=== PATIENT | male | born 1980 | race Caucasian/White ===

== ENCOUNTER 2020-12-14 16:33 | Outpatient (CLI) | payer OTHER, SELFPAY ==
--- NOTE | ~2020-12-14 | XR_ITS ---
XR toe 4th RT min 2V DATE: 12/14/2020 17:12 INDICATION: Stubbed toe. Unable to bear weight. Fourth toe pain. TECHNIQUE: 4 views COMPARISON: None FINDINGS: There is a small curvilinear bony density at the dorsal aspect of the distal interphalangea l joint and base of the distal phalanx which may represent a small cortical avulsion fracture of unce rtain age. There is widening of the distal interphalangeal joint space. No other fracture or dislocation is detected. No periosteal reaction or bone destruction. No radiopaq ue soft tissue foreign body or subcutaneous emphysema. IMPRESSION: Small cortical avulsion fracture of the dorsal aspect of the base of the distal phalanx, of undetermined age Reviewed, dictated and finalized at location B. IMPRESSION: Small cortical avulsion fracture of the dorsal aspect of the base o f the distal phalanx, of undetermined age
== END 2020-12-14 16:34 | disposition home or self-care (01) ==
LOC: ANHIMG 16:37
PROVIDERS: PCP Family Medicine; Visit Provider Family Medicine
DX: S92.531A Displaced fracture of distal phalanx of right lesser toe(s), initial encounter for closed fracture (principal); M79.676 Pain in unspecified toe(s)
CPT/HCPCS: 73660

== ENCOUNTER 2023-08-16 06:21 | Emergency (ER) | payer OTHER, SELFPAY ==
--- NOTE | ~2023-08-16 | US_ITS ---
EXAMINATION: US right upper quadrant DATE: 08/16/2023 08:30 INDICATION: Right upper quadrant abdominal pain TECHNIQUE: Multiple grayscale and Doppler ultrasound images of the abdomen were obtained. COMPARISON: None FINDINGS: The pancreatic head and body are normal in appearance. The pancreatic tail is not visualized. Liver has normal echogenicity and contour, with a smooth surface. No liver lesion identified. No intrahepat ic biliary duct dilation suspected. Portal venous flow was seen in the hepatopetal, normal direction and has normal Doppler waveform. The proximal inferior vena cava is normal. Visualized portion of the right kidney demonstrates normal echogenicity and contour with no hydronephrosis. There is diffuse w all thickening of the gallbladder. 2 mm hypoechoic likely polyp which appears adherent to the nondepe ndent wall of the gallbladder fundus. No evident shadowing cholelithiasis. Common bile duct measures 2-3 mm in diameter which is normal. Sonographic Alvarado sign was reported as positive by the sonograph er. IMPRESSION: 1. Gallbladder wall thickening with positive sonographic Alvarado's on the but without evident cholelit hiasis which is equivocal for acute cholecystitis. The gallbladder wall thickening could also be rela truman to liver disease, heart or renal failure, sepsis or other generalized edema forming states. Corre late clinically and could consider HIDA scan for further evaluation. Reviewed, dictated and finalized at location L. IMPRESSION: 1. Gallbladder wall thickening with positive sonographic Alvarado's on the but wi thout evident cholelithiasis which is equivocal for acute cholecystitis. The ga llbladder wall thickening could also be related to liver disease, heart or andrew l failure, sepsis or other generalized edema forming states. Correlate clinical ly and could consider HIDA scan for further evaluation.
[2023-08-16 06:22] VITALS: BP 141/86; PULSE 74; RESP 16; TEMP 36.8; O2SAT 99
[2023-08-16 06:41] VITALS: BP 141/86; PULSE 60; RESP 16; O2SAT 100
[2023-08-16 06:45] LABS: Basophils Percent Auto 0.3 % (0.2-1.2); Eosinophils Absolute Auto 0.1 K/mm3 (0-0.3); Eosinophils Percent Auto 1.3 % (0-4.4); Hemoglobin 15.8 g/dL (14.0-18.0); Immature Granulocyte Absolute 0.03 K/mm3 (0.00-0.031); Immature Granulocyte Percent A 0.4 % (0-0.5); Lymphocytes Absolute Auto 1.52 K/mm3 (0.9-3.2); Lymphocytes Percent Auto 21.7 % (18.3-44.2); Mean Corpuscular HGB Conc 32.9 g/dl (32-36); Mean Corpuscular Hemoglobin 29.5 pg (26-34); Mean Corpuscular Volume 89.7 fl (80-100); Mean Platelet Volume 11.4 fl (7.4-10.4); Monocytes Absolute Auto 0.5 K/mm3 (0.1-0.6); Monocytes Percent Auto 6.6 % (2.6-8.5); Neutrophils Absolute Auto 4.9 K/mm3 (1.3-6.7); Neutrophils Percent Auto 69.7 % (45.5-73.1); Platelet Count Result 199 k/mm3 (150-375); Red Blood Count 5.35 M/mm3 (4.6-6.20); Red Cell Distribution Width 12.7 % (11.5-14.5)
[2023-08-16 06:51] LABS: Appearance Urine Cloudy (Clear); Bacteria Urine None Seen /hpf; Bilirubin Urine Negative (Negative); Blood Urine Negative (Negative); Color Urine Yellow (Yellow); Glucose Urine UA Negative (Negative); Ketones Urine Negative (Negative); Leukocyte Esterase Ur Negative LEU/UL (Negative); Nitrate Urine Negative (Negative); Non Pathogenic Casts 0-2; Protein Urine Negative (Negative); RBC Urine 0-2 /hpf (0-2); Specific Grav Ur 1.018 (1.001-1.035); Squamous Epithelial Cell Urine None Seen /hpf (Few); Urobilinogen Urine 0.2 mg/dL (<2.0); WBC Urine 0-5 /hpf (0-3); pH Urine 6.5 (5.0-9.0)
[2023-08-16 06:53] LABS: Add Urine Microscopic? YES
[2023-08-16 06:54] LABS: Alanine Aminotransferase 18 U/L (6-50); Albumin Level 4.4 g/dL (3.5-5.1); Alkaline Phosphatase 59 U/L (38-126); Anion Gap 6 mmol/L (8-16); Aspartate Amino Transferase 18 U/L (17-59); Bilirubin,Total 0.7 mg/dL (0.2-1.3); Blood Urea Nitrogen 15 mg/dL (9-20); Calcium 9.2 mg/dL (8.4-10.2); Carbon Dioxide 31 mmol/L (22-30); Chloride 102 mmol/L (98-107); Estimated CRCL calculation 74 ml/min; Estimated Glomerular Filt Rate > 60; Glucose 102 mg/dL (65-110); Lipase 150 U/L (23-300); Potassium 3.5 mmol/L (3.4-5.0); Sodium 139 mmol/L (137-145)
[2023-08-16 07:44] VITALS: BP 129/90; PULSE 69; RESP 13; O2SAT 99
[2023-08-16] MEDS: KETOROLAC 30 MG/ML VIAL (*BKC) IV PUSH (07:44)
--- NOTE | 2023-08-16 07:59 | PC.NURSE ---
Pt to u/s via w/c at this time
[2023-08-16 08:31] VITALS: BP 118/74; PULSE 65; RESP 15; O2SAT 97
--- NOTE | 2023-08-16 09:10 | ED.ABDPAIN ---
HPI - Abdominal Pain General Chief Complaint: Abdominal Pain Stated Complaint: abd pain right middle to ribs and back, [id number] Time Seen by Provider: 08/16/23 06:59 History of Present Illness HPI narrative: Patient is a 42-year-old male who presents ER with right upper quadrant abdominal pain. Sharp and cramping. Radiates around his left side into his back. Began this morning woke him from sleep. He has had this happen several other times in the last 2 weeks. He is driven to the ER but then pain would subside so he would go home. No fevers or chills or sweats. Mild nausea. No urinary frequency urgency or dysuria. Has history of kidney stones but this feels different. Related Data Allergies Allergy/AdvReac Type Severity Reaction Status Date / Time codeine Allergy Unknown Unknown Verified 08/16/23 06:26 hydroxyzine Allergy Unknown Unknown Verified 08/16/23 06:26 Iodinated Contrast Media Allergy Unknown Unknown Verified 08/16/23 06:26 Sulfa (Sulfonamide Allergy Unknown Unknown Verified 08/16/23 06:26 Antibiotics) Review of Systems Review of Systems: All systems reviewed & are unremarkable except as noted in HPI and below Constitutional: Constitutional: Reports no additional constitutional complaints ENT: Reports system reviewed and no additional complaints, except as documented Cardiovascular: Cardiovascular: Reports no additional cardiovascular complaints Gastrointestinal: Gastrointestinal: Reports abdominal pain, Denies diarrhea, Reports nausea and Denies vomiting PMFSH Past Medical History Medical History (Updated 08/16/23 @ 10:08 by Tony Vick MD) Kidney stones Surgical History Surgical History (Updated 08/16/23 @ 09:13 by Tony Vick MD) No history of previous surgery Social History Social History Smoking status: Never smoker Second hand tobacco smoke exposure: No Alcohol intake: current Drinks per week: 2 Substance use: never Substance use type: does not use Living arrangements: alone Occupation/Education: occupation Gender identity (if verbalized by the patient): Male Exam Narrative: GENERAL: Well-appearing, well-nourished, and in no acute distress. HEAD: Normocephalic, atraumatic. ENT: Mucous membranes moist. NECK: Supple. CHEST: Clear to auscultation. No respiratory distress. HEART: Regular rate and rhythm. Normal peripheral pulses. ABDOMEN: Soft,mild tenderness palpation right upper quadrant without guarding, nondistended. EXTREMITIES: Normal range of motion. No edema. SKIN: Warm, dry, no rash. NEURO:Alert and oriented x3. PSYCH: Normal mood and affect. Course Course Emergency Course: 09: no pain at this time. Discussed imaging and lab results. Will consult General surgery for follow-up. 1006: Discussed with General surgery. Recommends discharge home with pain and nausea control as well as low-fat diet. He will need to call the office today to schedule close follow-up for 08/20/23. Patient will likely need his gallbladder out given his recurrent frequent symptoms. Patient verbalized understanding of this treatment plan. Vital Signs Vital signs: Vital Signs Temperature 98.3 F 08/16/23 06:22 Pulse Rate 74 08/16/23 06:22 Respiratory Rate 16 08/16/23 06:22 Blood Pressure 141/86 H 08/16/23 06:22 Pulse Oximetry 99 08/16/23 06:22 Oxygen Delivery Room Air 08/16/23 06:22 Temperature 98.3 F 08/16/23 06:22 Pulse Rate 65 08/16/23 08:31 Respiratory Rate 15 08/16/23 08:31 Blood Pressure 118/74 08/16/23 08:31 Pulse Oximetry 97 08/16/23 08:31 Oxygen Delivery Room Air 08/16/23 06:22 MDM - Abdominal Pain Lab Data 08/16/23 06:38 08/16/23 06:38 Labs: Lab Results 08/16/23 Range/Units 06:38 WBC 7.0 (4.5-10.0) K/mm3 RBC 5.35 (4.6-6.20) M/mm3 Hgb 15.8 (14.0-18.0) g/dL Hct 48.0 (42.0-52.0) %
[2023-08-16] MEDS: HYDROcodone/acetaminophen (*CRX) 5-325 MG TABLET 1 TAB PO (10:22)
[2023-08-16 10:24] VITALS: BP 118/84; PULSE 71; RESP 20; O2SAT 99
== END 2023-08-16 10:25 | disposition home or self-care (01) ==
PROVIDERS: Emergency Medicine; Emergency Provider Emergency Medicine; PCP Family Medicine
DX: K80.50 Calculus of bile duct without cholangitis or cholecystitis without obstruction (principal); Z87.442 Personal history of urinary calculi
CPT/HCPCS: 36415; 76705; 80053; 83690; 85025; 96374; 99284; A9270; J1885

== ENCOUNTER 2023-08-29 08:57 | Outpatient (CLI) | payer OTHER, SELFPAY ==
[2023-08-29 10:01] LABS: Alanine Aminotransferase 31 U/L (6-50); Albumin Level 4.2 g/dL (3.5-5.1); Alkaline Phosphatase 51 U/L (38-126); Amylase 87 U/L (30-110); Aspartate Amino Transferase 27 U/L (17-59); Lipase 83 U/L (23-300)
== END 2023-08-29 08:58 | disposition home or self-care (01) ==
LOC: ANHSURGERY 09:00
PROVIDERS: PCP Family Medicine; Visit Provider Surgery
DX: K80.10 Calculus of gallbladder with chronic cholecystitis without obstruction (principal)
CPT/HCPCS: 36415; 80076; 82150; 83690; 86850; 86900; 86901

== ENCOUNTER 2023-08-29 09:27 | Outpatient (CLI) | payer OTHER, SELFPAY ==
--- NOTE | 2023-08-29 09:32 | EST_ITS ---
Patient Info Name: Anil Vanegas Age: 42 years : 1980 Gender: Male Ht: 69 in Wt: 149 lbs BSA: 1.81 m2 HR: 59 bpm BP: 119 / 72 mmHg Heart Rhythm: Sinus Rhythm Exam Date: 08/29/2023 9:46 AM Exam Location: Echo Lab Patient Status: Outpatient Admit Date: 08/29/2023 Staff Ordering Physician: Erica Ferrari PA-C Attending Provider: Erica Ferrari PA-C Exercise Technologist: Marylu Pascal CT Exercise Physician: Yasir Juan DO Exam Type: CA stress test treadmill Study Info Indications R94.31 - Abnormal electrocardiogram ECG EKG R07.89 - Other chest pain A treadmill exercise stress test was performed. Summary 1. 1. Negative Jarrett exercise stress test for ischemic ST changes by ECG criteria. 2. 2. Good functional capacity, achieving 10.9 METs of workload. 3. 3. Appropriate HR response to exercise. 4. 4. Appropriate HR recovery at 1 minute post exercise. 5. 5. No imaging with stress testing. 6. 6. Patient informed of the above results. Protocol: Jarrett Stress ECG Details Stage: REST Duration (min): 2 min : 40 sec Speed (mph): 0.0 Grade (%): 0 HR (bpm): 70 SBP (mmHg): 119 DBP (mmHg): 72 METS: --- Stage: REST Duration (min): 4 min : 12 sec Speed (mph): 0.0 Grade (%): 0 HR (bpm): 66 SBP (mmHg): 119 DBP (mmHg): 72 METS: --- Stage: STAGE 1 Duration (min): 1 min : 0 sec Speed (mph): 1.7 Grade (%): 10 HR (bpm): 96 SBP (mmHg): 119 DBP (mmHg): 72 METS: --- Stage: STAGE 1 Duration (min): 2 min : 0 sec Speed (mph): 1.7 Grade (%): 10 HR (bpm): 102 SBP (mmHg): 119 DBP (mmHg): 72 METS: --- Stage: STAGE 1 Duration (min): 3 min : 0 sec Speed (mph): 1.7 Grade (%): 10 HR (bpm): 100 SBP (mmHg): 130 DBP (mmHg): 62 METS: --- Stage: STAGE 2 Duration (min): 1 min : 0 sec Speed (mph): 2.5 Grade (%): 12 HR (bpm): 109 SBP (mmHg): 130 DBP (mmHg): 62 METS: --- Stage: STAGE 2 Duration (min): 2 min : 0 sec Speed (mph): 2.5 Grade (%): 12 HR (bpm): 114 SBP (mmHg): 143 DBP (mmHg): 63 METS: --- Stage: STAGE 2 Duration (min): 3 min : 0 sec Speed (mph): 2.5 Grade (%): 12 HR (bpm): 121 SBP (mmHg): 143 DBP (mmHg): 63 METS: --- Stage: STAGE 3 Duration (min): 1 min : 0 sec Speed (mph): 3.4 Grade (%): 14 HR (bpm): 133 SBP (mmHg): 160 DBP (mmHg): 67 METS: --- Stage: STAGE 3 Duration (min): 2 min : 0 sec Speed (mph): 3.4 Grade (%): 14 HR (bpm): 144 SBP (mmHg): 160 DBP (mmHg): 67 METS: --- Stage: STAGE 3 Duration (min): 3 min : 0 sec Speed (mph): 3.4 Grade (%): 14 HR (bpm): 150 SBP (mmHg): 171 DBP (mmHg): 70 METS: --- Stage: STAGE 4 Duration (min): 0 min : 26 sec Speed (mph): 4.2 Grade (%): 16 HR (bpm): 159 SBP (mmHg): 171 DBP (mmHg): 70 METS: --- Stage: RECOVERY Duration (min): 0 min : 33 sec Speed (mph): 0.0 Grade (%): 0 HR (bp
== END 2023-08-29 09:28 | disposition home or self-care (01) ==
PROVIDERS: PCP Family Medicine; Visit Provider Physician Assistant
DX: R94.31 Abnormal electrocardiogram [ECG] [EKG] (principal)
CPT/HCPCS: 36415; 80076; 82150; 83690; 86850; 86900; 86901; 93017

== ENCOUNTER 2023-09-06 00:28 | Day surgery (SDC) | payer OTHER, SELFPAY ==
--- NOTE | 2023-08-28 08:52 | PC.NURSE ---
Report to the Outpatient Waiting Room, entrance under the green pavilion located off [facility], at time _1130_ on date _09/06/23_. Planned Procedure Time: _1330___. Time changes happen often and if your time is changed the preop area will call you the afternoon before. - You and your visitor will be asked to self-screen and do not enter if you have any COVID symptoms. - A mask is optional within the hospital at this time. Patients may have clear liquids (water, carbonated beverages, clear teas, apple juice) until 3 hours prior to surgery with a maximum of 20 ounces. - No food from midnight until time of surgery - Infants may have breast milk until 4 hours before surgery, infant formula 6 hours prior to surgery. - Children will be allowed to drink immediately following surgery. If applicable, please bring a bottle or sippy cup to assist with drinking. Juice, water, soda, and popsicles are readily available. For infants on formula, please bring formula the day of surgery. Pacifiers are allowed. Take the following medications with a SIP of water the morning of surgery: __None DO NOT STOP ANY OF YOUR OTHER PRESCRIPTION MEDICATIONS PRIOR TO SURGERY ?EXCEPT THE FOLLOWING Medications to discontinue per physician __Vitamins and supplements 3 days prior to surgery_ Date to take last dose Please no make-up, nail english, hairspray, perfume, deodorant, or body powder the day of surgery. No jewelry (including any body piercings) or valuables the day of surgery, leave them at home. Please take a shower or bath the night before, or the morning of, surgery with an antibacterial soap. Wear comfortable, loose fitting clothing. Children are encouraged to wear pajamas. - Jewelry must be removed prior to entering the operating room. Rings and piercings that are not removed may be cut off. - The hospital will not accept responsibility for valuables. - Please leave all valuables, including medications, at home the day of surgery. If you are going home after surgery, a licensed flatbed truck driver must drive you home. - NO public transportation without another adult if you receive anesthesia. - We recommend that an adult stay with you for 24 hours following discharge. - We also recommend that you do not drive, make important decision, drink alcoholic beverages, or take any drugs that were not prescribed by your health care provider for at least 24 hours after your discharge time. For Pediatric surgeries, we recommend two adults accompany the child home. Follow any additional instructions given to you from your surgeon. If you or anyone in your household have experienced Covid symptoms in the past week, please notify your surgeon or the nurse liaison at the phone number below for possible testing. Telephone instructions given to _patient__and asked if any additional questions and then verbalized understanding. Patient advised to call surgeon office or pre surgery nurse liaison [phone] if any additional questions.
[2023-08-28 09:03] VITALS: BMI 22.0
[2023-09-06] VITALS (8 sets, daily range): BP systolic 112–134; BP diastolic 57–87; PULSE 56–79; RESP 12–18; TEMP 36.1–36.2; O2SAT 99–100
[2023-09-06] MEDS: LACTATED RINGERS 1,000 ML 30 ML IV CONT ×2 (12:18→15:52)
[2023-09-06] MEDS: ACETAMINOPHEN 500 MG TABLET 1000 MG PO (12:25)
[2023-09-06] MEDS: KETOROLAC 15 MG/ML VIAL (*BKC) IV PUSH (12:26)
--- NOTE | 2023-09-06 13:00 | WPDANESEPPF ---
Anes - Initial Pre Proc Eval Procedure: Operation Date: 09/06/23 13:30 Proposed Procedures p Laparoscopic Cholecystectomy - Jose Elias Frazier MD Date/Time: 09/06/23 13:00 Surgeon: Jose Elias Frazier MD Pre Op Diagnosis: chronic cholecystitis with stones Patient Data Age: 42 Gender: M Height: 1.75 m Weight: 66.75 kg Last Vital Signs Temp 97.0 F L 09/06/23 11:41 Pulse 56 L 09/06/23 11:41 Resp 16 09/06/23 11:41 BP 132/87 09/06/23 11:41 Pulse Ox 100 09/06/23 11:41 O2 Del Method Room Air 09/06/23 11:41 Allergies Allergy/AdvReac Type Severity Reaction Status Date / Time codeine Allergy Unknown Unknown Verified 09/06/23 11:52 hydroxyzine Allergy Unknown Unknown Verified 09/06/23 11:52 Iodinated Contrast Media Allergy Unknown Unknown Verified 09/06/23 11:52 Sulfa (Sulfonamide Allergy Unknown Unknown Verified 09/06/23 11:52 Antibiotics) Home Medications Medication Instructions Recorded Confirmed Type hydrocodone 5 mg-acetaminophen 325 1 tablet PO Q6H PRN pain #20 tabs 08/16/23 09/06/23 Rx mg tablet ondansetron 4 mg disintegrating 4 mg PO Q6H PRN nausea and 08/16/23 09/06/23 Rx tablet vomiting #10 tabs Patient hx anesthesia problems: none Family hx anesthesia problems: none Results Review: All pre-operative results and documents have been reviewed as part of the pre-operative evaluation. [facility] Past Medical History Medical History (Updated 08/20/23 @ 15:25 by Toya Hernández CMA) Kidney stones Surgical History Surgical History (Updated 08/20/23 @ 14:41 by Toya Hernández CMA) Hx of wisdom tooth extraction Family History Family History Grandparent Hypertension Lupus Social History Social History Smoking status: Never smoker Second hand tobacco smoke exposure: No Alcohol intake: former Drinks per week: 2 Substance use: never Substance use type: does not use Living arrangements: alone Occupation/Education: occupation Gender identity (if verbalized by the patient): Male Spiritual care concerns: No Anes - Eval Final PreProcedure Day of Procedure 09/06/23 13:00 Patient weight: normal Heart: regular rate and rhythm Lungs: clear to auscultation Airway: Mallampati scale and special considerations (Caps. ) Neurological: alert and oriented Last oral intake: >/= 8 hours ASA classification: II Emergent: no Anesthetic plan: proceed Anesthesia type and monitoring: general and standard monitoring Other findings: Stress test 08/2023 nml. Results Review: All pre-operative results and documents have been reviewed as part of the pre-operative evaluation. Informed Consent: The patient's anesthetic plan and its attendant risks and benefits were discussed with the patient/family/POA. Questions were solicited and answers provided to the satisfaction of the patient/family/POA.
--- NOTE | 2023-09-06 14:04 | WPDHPUPDATE1 ---
History and Physical Update Update Date/Time: 09/06/23 14:04 History and Physical has been reviewed, including an updated exam of the patient. There are NO changes in the patient's condition. Risks, benefits, and alternatives have been discussed and questions answered. Patient agrees to proceed with procedure.
[2023-09-06] MEDS: ceFAZolin 2 GM/D5W 50 ML 2 GM/50 ML BAG IVPB (15:11)
[2023-09-06] MEDS: BUPIVACAINE/EPINEPHRINE 0.5% 50 ML VIAL 30 ML INFILTRATE (15:45)
--- NOTE | 2023-09-06 15:58 | P.OP_ITS ---
Procedure Note - Detailed Date of Procedure 09/06/23 Pre-op Diagnosis chronic cholecystitis Post-op Diagnosis Same Procedure Performed Laparoscopic cholecystectomy Surgeon Jose Elias Frazier MD Ophthalmic Medical Technologist Vivian MCCORMICKA Anesthesia General and Local Indications patient has been having episodes of epigastric pain that would radiate to the right upper quadrant and to the back. He went to the emergency room and an ultrasound did not show gallstones but did show a positive sonographic Alvarado sign. He was seen in the office and his presentation is consistent with chronic acalculous cholecystitis. He is taken to surgery now for laparoscopic cholecystectomy. Findings Mild chronic inflammation, no stones noted, no biliary ductal dilatation, no liver abnormalities. Description of Procedure Patient was taken to surgery and induced into general anesthesia. The abdomen is prepped and draped. Trocars were placed in the usual fashion using [facility] optical trocars and a 5 mm camera. The gallbladder was decompressed with a laparoscopic aspirator. I then freed the gallbladder from omental adhesions and was then able to retracted anterosuperiorly. Dissection was c arried out in the cholecystohepatic triangle. There was some changes of chronic inflammation in the triangle of Calot. The cystic duct and cystic artery were dissected out clearly. All bladder was dissected off the liver over its lower half. Critical view was achieved. I securely clipped the cystic duct and cystic artery. They were both divided. I then divided the remaining attachments of the gallbladder to the liver. There was very little bleeding. The gallbladder was placed in an Endo-Catch bag and retrieved through the 10 11 epigastric trocar site. I then replaced the epigastric trocar and we reviewed the gallbladder fossa and right upper quadrant. This area was irrigated and suctioned 2 or 3 times. All looked good with no evidence of bleeding or bile leakage. We then evacuated CO2 and removed the trocar sleeves. Skin wounds were closed with subcuticular 4-0 Monocryl skin suture. The wounds were dressed with Exofin surgical adhesive. Patient was awakened and taken to recovery in good condition. Sponge and needle counts were correct x2. Estimated Blood Loss -10 Drains No Packing No Pathology Yes ( Gallbladder) Complications No immediate complications Condition Stable Disposition PACU [facility] Billing Surgery - Charge Forward: Surgery Billing ( laparoscopic cholecystectomy)
== END 2023-09-06 17:24 | disposition home or self-care (01) ==
PROVIDERS: PCP Family Medicine; Visit Provider Surgery
PROC: 0FT44ZZ Resection of Gallbladder, Percutaneous Endoscopic Approach (ICD-10-PCS; CPT 47562; principal; 2023-09-06 13:30)
DX: K81.1 Chronic cholecystitis (principal); Z87.891 Personal history of nicotine dependence; Z87.442 Personal history of urinary calculi
CPT/HCPCS: 47562; 88304; A9270; J0690; J1100; J1170; J1885; J2250; J2405; J2704; J3010; J7120